=== PATIENT | female | born 2000 | race Hispanic/Latino ===

== ENCOUNTER 2020-01-14 11:17 | Emergency (ER) | payer SELFPAY ==
[2020-01-14] MEDS ORDERED: Ibuprofen 800 MG TAB ONE (12:24)
--- NOTE | 2020-01-14 12:24 | RAD ---
RIGHT FOOT 3 VIEWS: HISTORY: Injury, right foot pain. FINDINGS/IMPRESSION: No acute fracture or dislocation is identified. POS: [facility]
--- NOTE | 2020-01-14 12:24 | RAD ---
RIGHT ANKLE 3 VIEWS: HISTORY: Injury, right ankle pain. FINDINGS/IMPRESSION: The ankle mortise is maintained. No acute fracture or dislocation is identified. POS: [facility]
== END 2020-01-14 12:46 | disposition home or self-care (01) ==
LOC: ERS 11:17
DX: S93.401A Sprain of unspecified ligament of right ankle, initial encounter (principal); X50.1XXA Overexertion from prolonged static or awkward postures, initial encounter